=== PATIENT | female | born 1960 | race Caucasian/White ===

== ENCOUNTER → 2024-05-02 08:33 | Outpatient (REF) | payer BC, SELFPAY | LOC: WDC 08:33 | PROVIDERS: ATTENDING PHYSICIAN Physician Assistant Medical | DX: N63.0 Unspecified lump in unspecified breast (principal); Z85.3 Personal history of malignant neoplasm of breast; N63.24 Unspecified lump in the left breast, lower inner quadrant; N63.14 Unspecified lump in the right breast, lower inner quadrant | CPT/HCPCS: 76642; 77062; 77066 ==